=== PATIENT | female | born 1960 | race Caucasian/White ===

== ENCOUNTER → 2017-04-09 14:54 | Outpatient (CLI) | payer BC, SELFPAY ==
[2017-04-14 10:41] LABS: HPV Reflexed? NOT INDICATED
== END ==
PROVIDERS: Visit Provider Obstetrics & Gynecology
DX: R87.610 Atypical squamous cells of undetermined significance on cytologic smear of cervix (ASC-US) (principal)
CPT/HCPCS: 88175; G0145

== ENCOUNTER 2017-06-20 05:26 | Day surgery (SDC) | payer BC, SELFPAY ==
--- NOTE | 2017-06-20 05:38 | EKG12_ITS ---
Test Reason : PRE OP Blood Pressure : / mmHG Vent. Rate : 077 BPM Atrial Rate : 077 BPM P-R Int : 148 ms QRS Dur : 080 ms QT Int : 450 ms P-R-T Axes : 044 020 073 degrees QTc Int : 509 ms Normal sinus rhythm Low voltage QRS Prolonged QT Abnormal ECG No previous ECGs available Confirmed by CANDIS COFFMAN ([id number]), proposal editor ANNALISA LAWRENCE ([id number]) on 06/24/2017 4:09:08 PM Referred By: Nettie Lemus Confirmed By:CANDIS COFFMAN
[2017-06-20 05:48] VITALS: BP 145/91; PULSE 76; RESP 14; TEMP 36.5; O2SAT 95; BMI 43.4
[2017-06-20 06:29] LABS: Absolute Lymphocyte Count 2.89 X10^3/ul (0.83-4.51); Absolute Neutrophil Count 3.3 X10^3/uL (2.0-7.7); Basophil# 0.12 X10^3/uL; Basophil% 1.6 % (0-1); Eosinophil# 0.45 X10^3/uL; Eosinophils% 6.1 % (0-5); Hematocrit 42.4 % (37-47); Hemoglobin 14.5 g/dl (12.0-15.0); Lymphocyte # 2.89 X10^3/ul (4.0); Lymphocyte % 39.1 % (19-41); Mean Corp Hgb Conc 34.2 g/gl (32-36); Mean Corpuscular Hgb 30.7 pg (27.0-32.0); Mean Corpuscular Volume 89.6 fL (81-99); Mean Platelet Vol. 10.9 fl (6.2-12.0); Monocyte# 0.59 X10^3/uL; Neutrophil # 3.31 X10^3/uL (2.7-7.7); Neutrophil % 44.8 % (47-70); POSITIVE COUNT NO; POSITIVE DIFFERENTIAL NO; POSITIVE MORPHOLOGY NO; Platelet Count 257 K/mm3 (150-450); RBC Distribution Width CV 13.3 % (11.6-14.6); RBC Distribution Width SD 43.1 fl (35.1-43.9); Red Blood Count 4.73 M/mm3 (4.2-5.4); White Blood Count 7.4 K/mm3 (4.4-11.0)
--- NOTE | 2017-06-20 07:50 | OP.PCM_ITS ---
Problem List (1) Female stress incontinence Status: Chronic Report of Operation Date of Procedure: 06/20/17 Pre-Operative Diagnosis: GUERLINE Post-Operative Diagnosis: same Surgery/Procedure Performed:: Midurethral sling and cystoscopy Description of Surgical Findings:: The patient was taken to the operating room where general anesthesia was initiated. The patient was placed in dorsal lithotomy position and prepped and draped in sterile fashion. A surgical timeout occurred. Reyna catheter was placed in the patient's bladder. The vaginal epithelium overlying the mid- urethra was grasped with two Allis clamps, injected with 0.25% Marcaine with epinephrine and a 1.5 cm midline incision was made over the mid urethra using a 15 blade scalpel. Tunnels were dissected bilaterally to the pubic rami and the Diana Desera trocars were passed through the tunnels on the right side, through the space of Retzius and out the skin at at the pubic symphysis. This was repeated on the patient's left side. Cystoscopy was performed and there was no evidence of bladder or urethral injury. The sling was then drawn up through the space of Retzius and out the skin at the pubic symphysis. Tension was adjusted by placing a Wangensteen forceps between the sling and the urethra. Once adequate tension was adjusted, the plastic sheaths were removed. The redundant sling was trimmed at the skin edges and the skin was repaired with Indermil. The vaginal epithelium was repaired with a running 3-0 Vicryl suture. Anesthesia was discontinued. All needle, instrument, and sponge counts were correct x 2. The patient was taken to recovery room in stable condition. accounts payable lead: Graciela Wade Type of Anesthesia:: General - LMA
--- NOTE | 2017-06-20 07:53 | PCM.DC.GS ---
Discharge Diet: No Restrictions Discharge Activity: Return to Normal Activity May shower in (days): 1 May resume sexual activity in: 6 weeks Weight Bearing Status: Weight bearing as tolerated Call your doctor if your incision/area has: Continuous Slow Oozing, Sudden Increased Bleeding, Increased Pain/ Swelling, Increased Redness, Foul Smelling Discharge, Swelling at the incision site Call your doctor if you observe: Fever of 101 or Higher, Coldness, Increased Pain, Inability to urinate, Inability to have a bowel movement, Using more than one pad per hour, Shortness of breath, Uncontrolled pain Allergies/Adverse Reactions: Allergies No Known Allergies Allergy (Verified 06/13/17 11:24) Medications to take at Discharge Lisinopril/Hydrochlorothiazide [Zestoretic 20/12.5 Tablet] 1 tablet PO DAILY 06/13/17 Loratadine [Claritin] 10 mg PO PRN PRN 06/13/17 Primary Care Physician: Odessa Cordero MD [Primary Care Provider] - Please Follow Up With: Nettie Lemus MD When: 6 weeks Proposed Discharge Date: 06/20/17
[2017-06-20 07:54] VITALS: BP 133/80; BP 145/91; PULSE 82; RESP 16; TEMP 36.1; O2SAT 97
[2017-06-20 08:15] VITALS: BP 142/82; BP 145/91; PULSE 75; RESP 16; O2SAT 92
[2017-06-20 08:30] VITALS: BP 130/82; BP 145/91; PULSE 75; RESP 16; O2SAT 94
[2017-06-20 08:45] VITALS: BP 145/91; BP 146/80; PULSE 70; RESP 16; TEMP 36; O2SAT 97
[2017-06-20 10:09] VITALS: BP 145/91
== END 2017-06-20 10:15 | disposition home or self-care (01) ==
LOC: SDC 05:30 → AC 05:30
PROVIDERS: Family Provider Family Medicine; PCP Family Medicine; Visit Provider Obstetrics & Gynecology
PROC: (CPT 57260; principal; 2017-06-20 07:05)
DX: N39.3 Stress incontinence (female) (male) (principal); N81.6 Rectocele; N32.81 Overactive bladder; I10 Essential (primary) hypertension; Z87.891 Personal history of nicotine dependence; Z79.899 Other long term (current) drug therapy
CPT/HCPCS: 57288; 36415; 85025; 93005; J7120; C1771; J2405

== ENCOUNTER → 2017-08-19 10:01 | Outpatient (CLI) | payer BC, SELFPAY ==
[2017-08-19 12:50] LABS: Anion Gap 8 (5-15); BUN 12 mg/dL (7-18); Calcium,Total 8.6 mg/dL (8.5-10.1); Chloride 105 mmol/L (98-107); EST Glomerular Filtration Rate 60 mL/min (>60); Est Glom Filt Rate - Afr Amer 73 mL/min (>60); Glucose 118 mg/dL (74-106); Potassium 4.1 mmol/L (3.5-5.1); Sodium Level 142 mmol/L (136-145)
== END ==
PROVIDERS: Family Provider Family Medicine; PCP Family Medicine; Visit Provider Family Medicine
DX: I10 Essential (primary) hypertension (principal)
CPT/HCPCS: 36415; 80048

== ENCOUNTER → 2018-03-04 10:35 | Outpatient (CLI) | payer BC, SELFPAY ==
[2018-03-04 12:32] LABS: Anion Gap 9 (5-15); BUN 16 mg/dL (7-18); BUN/Creat Ratio 19.5 RATIO (10-20); Calcium,Total 8.6 mg/dL (8.5-10.1); Chloride 106 mmol/L (98-107); Creatinine, Serum 0.82 mg/dL (0.55-1.02); EST Glomerular Filtration Rate 76 mL/min (>60); Est Glom Filt Rate - Afr Amer 92 mL/min (>60); Glucose 110 mg/dL (74-106); Potassium 4.2 mmol/L (3.5-5.1); Sodium Level 143 mmol/L (136-145)
== END ==
PROVIDERS: Family Provider Family Medicine; PCP Family Medicine; Visit Provider Family Medicine
DX: I10 Essential (primary) hypertension (principal)
CPT/HCPCS: 36415; 80048

== ENCOUNTER → 2018-04-18 08:54 | Outpatient (CLI) | payer BC, SELFPAY ==
--- NOTE | 2018-04-18 08:56 | BI_ITS ---
MAMMOGRAPHY - BILATERAL SCREENING REASON FOR EXAM: Female, 58 years old. Routine annual screening examination. PERTINENT HISTORY: Mother with breast cancer. TECHNIQUE: Digital bilateral breast zabrina (3D mammographic acquisition) in the CC and MLO projections. 2-D mediolateral oblique (MLO) and craniocaudad (CC) views of both breasts were obtained. CAD: Full Field Digital Mammography with Computer Added Detection was performed. COMPARISON: Comparison is made with prior study dated October 09, 2016 and October 02, 2015. FINDINGS: Breast Composition: The breasts are heterogeneously dense, which may obscure small masses. There are no dominant masses or suspicious calcifications. There are stable small bilateral axillary lymph nodes. No other significant abnormalities are identified. There has been no significant change since the prior study. BI/SCREENING MAMM (CAD), BILAT IMPRESSION: Stable bilateral screening mammogram. Yearly follow-up mammogram recommended. (A) ASSESSMENT CATEGORY: BIRADS Category 2: Benign. A letter regarding these results will be sent to the patient by the facility within 30 days. Approximately 10% of breast cancers are not detected by mammography. A normal mammogram should not delay biopsy of a clinically suspicious abnormality. [id number] Electronically Signed: Mustapha Wong MD at 9:08 EST , Service support ,
== END ==
PROVIDERS: Family Provider Family Medicine; PCP Family Medicine; Referring Provider Family Medicine; Visit Provider Family Medicine
DX: Z12.31 Encounter for screening mammogram for malignant neoplasm of breast (principal)
CPT/HCPCS: 77063; 77067

== ENCOUNTER 2018-06-02 08:07 | Emergency (ER) | payer BC, SELFPAY ==
[2018-06-02 08:08] VITALS: BP 158/93; PULSE 71; RESP 20; TEMP 36.6; O2SAT 97; BMI 41.5
[2018-06-02 08:32] VITALS: BP 142/83; PULSE 64; RESP 16; O2SAT 95
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
[2018-06-02] MEDS: Ibuprofen 600 MG Tablet PO (09:32)
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
--- NOTE | 2018-06-02 11:01 | ED.RN ---
DISCHARGE INSTRUCTIONS GIVEN TO AND REVIEWED WITH PATIENT, PATIENT DENIES QUESTIONS OR CONCERNS AND VOICES UNDERSTANDING OF DISCHARGE INSTRUCTIONS. PT AMBULATES OUT OF ROOM WITHOUT DIFFICULTY.
== END 2018-06-02 11:01 | disposition home or self-care (01) ==
LOC: ED 08:42
PROVIDERS: Emergency Provider Emergency Medicine; Family Provider Family Medicine; PCP Family Medicine
DX: S80.01XA Contusion of right knee, initial encounter (principal); R07.89 Other chest pain; M79.642 Pain in left hand; Z87.891 Personal history of nicotine dependence; V43.52XA Car driver injured in collision with other type car in traffic accident, initial encounter; Y93.I9 Activity, other involving external motion; Y92.410 Unspecified street and highway as the place of occurrence of the external cause; Y99.8 Other external cause status
CPT/HCPCS: 71101; 73130; 73564; 99283

== ENCOUNTER → 2018-10-23 | Outpatient (CLI) | payer BC, SELFPAY ==
[2018-10-28 12:15] LABS: HPV APTIMA, High Risk Negative (Negative)
== END | disposition home or self-care (01) ==
PROVIDERS: Family Provider Family Medicine; PCP Family Medicine; Referring Provider Obstetrics & Gynecology; Visit Provider Obstetrics & Gynecology
DX: Z12.4 Encounter for screening for malignant neoplasm of cervix (principal)
CPT/HCPCS: 87624; 88175; G0145

== ENCOUNTER → 2019-03-16 09:57 | Outpatient (CLI) | payer BC, SELFPAY ==
[2019-03-16 12:33] LABS: Anion Gap 6 (5-15); BUN 13 mg/dL (7-18); Calcium,Total 8.9 mg/dL (8.5-10.1); Chloride 106 mmol/L (98-107); Cholesterol 203 mg/dL (200); Creatinine, Serum 0.93 mg/dL (0.55-1.02); EST Glomerular Filtration Rate 66 mL/min (>60); Est Glom Filt Rate - Afr Amer 80 mL/min (>60); Glucose 108 mg/dL (74-106); High Density Lipoprotein 52 mg/dL; Potassium 3.9 mmol/L (3.5-5.1); Sodium Level 140 mmol/L (136-145); Triglycerides 143 mg/dL; Very Low Density Lipoprotein 29 mg/dL (5-40)
== END ==
PROVIDERS: PCP Family Medicine; Visit Provider Family Medicine
DX: I10 Essential (primary) hypertension (principal)
CPT/HCPCS: 36415; 80048; 80061

== ENCOUNTER → 2019-04-21 07:58 | Outpatient (CLI) | payer BC, SELFPAY ==
--- NOTE | 2019-04-21 08:01 | BI_ITS ---
MAMMOGRAPHY - BILATERAL SCREENING REASON FOR EXAM: Female, 59 years old. Routine annual screening examination. PERTINENT HISTORY: Mother had breast cancer TECHNIQUE: Digital bilateral breast cuca (3D mammographic acquisition) in the CC and MLO projections. 2-D mediolateral oblique (MLO) and craniocaudad (CC) views of both breasts were obtained. CAD: Full Field Digital Mammography with Computer Added Detection was performed. COMPARISON: Previously obtained on 04/18/2018 FINDINGS: Breast Composition: Dense central breast fractures identified. There are no dominant masses or suspicious calcifications. No other significant abnormalities are identified. BI/SCREEN MAMM (CAD) W/CUCA BILAT IMPRESSION: Stable bilateral screening mammogram. Yearly follow-up mammogram recommended. (A) ASSESSMENT CATEGORY: BIRADS Category 1: Negative. A letter regarding these results will be sent to the patient by the facility within 30 days. Approximately 10% of breast cancers are not detected by mammography. A normal mammogram should not delay biopsy of a clinically suspicious abnormality. [id number] Electronically Signed: Leonel Randall, at 15:16 EST Tel , Service support ,
--- NOTE | 2019-04-21 08:18 | BD_ITS ---
STUDY: DUAL ENERGY X-RAY ABSORPTIOMETRY / DXA REASON FOR EXAM: Female, 59 years old. Age of osbaldo- 49. Pat is 252# and 65 and quot;. Past hx of taking an HRT. Past hx of smoking for 14 yrs. But quit @ 28. Has a diuretic in her BP meds. Exercises a little. TECHNIQUE: Bone Mineral Density (BMD) measurements of lumbar spine and bilateral hips were obtained. COMPARISON: None. FINDINGS: Lumbar Spine (L1-L4): g/cm2 (1.138) / T-score (-0.3) / Z-score (0.8) Findings are suggestive of normal bone density with a low fracture risk. Left Femur Total: g/cm2 (1.120) / T-score (0.9) / Z-score (1.8) Left Femoral Neck: g/cm2 (0.931) / T-score (-0.8) / Z-score (0.5) Right Femur Total: g/cm2 (1.125) / T-score (0.9) / Z-score (1.9) Right Femoral Neck: g/cm2 (1.025) / T-score (-0.1) / Z-score (1.1) BD/Dexa Bone Density Study IMPRESSION: The patient is considered normal as outlined below according to World Kvng Organization (WHO) criteria with a low fracture risk. Reference Information: The T-score is the number of standard deviations above or below the standard which is normal for young adults at their peak bone mineral density. The World Health Organization (WHO) interprets the T-scores as follows: Above -1 Normal bone density Between -1 and -2.5 Osteopenia Equal to / or below -2.5 Osteoporosis As a practical clinical guideline, osteopenia may be graded as follows: Mild -1 through -1.5 Moderate -1.6 through -2.0 Severe -2.1 through -2.4 The Z-score is the number of standard deviations above or below age-matched controls. A Z-score of less than -1.5 would be considered abnormal. References: 1. NIH Osteoporosis and Related Bone Diseases http://www.osteo.org 2. International Society for Clinical Densitometry http://www.iscd.org 3. National Osteoporosis Foundation http://www.nof.org Electronically Signed: Mustapha Wong, at 14:25 EST , Service support ,
== END ==
PROVIDERS: PCP Family Medicine; Referring Provider Family Medicine; Visit Provider Family Medicine
DX: Z00.00 Encounter for general adult medical examination without abnormal findings (principal); Z12.31 Encounter for screening mammogram for malignant neoplasm of breast; N95.9 Unspecified menopausal and perimenopausal disorder
CPT/HCPCS: 77063; 77067; 77080

== ENCOUNTER → 2020-01-18 11:32 | Outpatient (CLI) | payer BC, SELFPAY ==
[2020-01-18 15:57] LABS: Anion Gap 6 (5-15); BUN 12 mg/dL (7-18); BUN/Creat Ratio 11.8 RATIO (10-20); Calcium,Total 8.9 mg/dL (8.5-10.1); Chloride 108 mmol/L (98-107); Creatinine, Serum 1.02 mg/dL (0.55-1.02); EST Glomerular Filtration Rate 59 mL/min (>60); Est Glom Filt Rate - Afr Amer 71 mL/min (>60); Glucose 117 mg/dL (74-106); Potassium 3.8 mmol/L (3.5-5.1); Sodium Level 140 mmol/L (136-145)
== END ==
PROVIDERS: PCP Family Medicine; Referring Provider Family Medicine; Visit Provider Family Medicine
DX: I10 Essential (primary) hypertension (principal)
CPT/HCPCS: 36415; 80048

== ENCOUNTER → 2020-07-03 16:30 | Outpatient (CLI) | payer BC, SELFPAY ==
[2020-07-03 18:26] LABS: Anion Gap 5 (5-15); BUN 10 mg/dL (7-18); BUN/Creat Ratio 11.2 RATIO (10-20); Calcium,Total 9.3 mg/dL (8.5-10.1); Chloride 104 mmol/L (98-107); Cholesterol 215 mg/dL (200); Creatinine, Serum 0.89 mg/dL (0.55-1.02); EST Glomerular Filtration Rate 68 mL/min (>60); Est Glom Filt Rate - Afr Amer 83 mL/min (>60); Glucose 90 mg/dL (74-106); High Density Lipoprotein 54 mg/dL; Potassium 3.4 mmol/L (3.5-5.1); Sodium Level 137 mmol/L (136-145); Triglycerides 150 mg/dL; Very Low Density Lipoprotein 30 mg/dL (5-40)
== END ==
PROVIDERS: PCP Family Medicine; Referring Provider Family Medicine; Visit Provider Family Medicine
DX: I10 Essential (primary) hypertension (principal); E78.5 Hyperlipidemia, unspecified
CPT/HCPCS: 36415; 80048; 80061

== ENCOUNTER → 2020-07-17 11:53 | Outpatient (CLI) | payer BC, SELFPAY ==
--- NOTE | 2020-07-17 11:55 | BI_ITS ---
MAMMOGRAPHY - BILATERAL SCREENING REASON FOR EXAM: Female, 60 years old. Routine annual screening examination. PERTINENT HISTORY: Mother with breast cancer. TECHNIQUE: Digital bilateral breast zabrina (3D mammographic acquisition) in the CC and MLO projections. 2-D mediolateral oblique (MLO) and craniocaudad (CC) views of both breasts were obtained. CAD: Full Field Digital Mammography with Computer Added Detection was performed. COMPARISON: Comparison is made with prior examination of 04/21/2019 and 04/18/2018. FINDINGS: Breast Composition: The breasts are heterogeneously dense, which may obscure small masses. There are no dominant masses or suspicious calcifications. Stable small benign-appearing bilateral axillary lymph nodes. No other significant abnormalities are identified. There has been no significant change since the prior study. BI/SCREENING MAMM (CAD), BILAT IMPRESSION: Stable bilateral screening mammogram. Yearly follow-up mammogram recommended. (A) ASSESSMENT CATEGORY: BIRADS Category 1: Negative. A letter regarding these results will be sent to the patient by the facility within 30 days. Approximately 10% of breast cancers are not detected by mammography. A normal mammogram should not delay biopsy of a clinically suspicious abnormality. [id number] Electronically Signed: Mustapha Wong MD at 12:59 EDT , Service support ,
== END ==
PROVIDERS: PCP Family Medicine; Referring Provider Family Medicine; Visit Provider Family Medicine
DX: Z12.31 Encounter for screening mammogram for malignant neoplasm of breast (principal)
CPT/HCPCS: 77067

== ENCOUNTER → 2021-01-03 15:51 | Outpatient (CLI) | payer BC, SELFPAY ==
[2021-01-03 18:13] LABS: Anion Gap 6 (5-15); BUN 18 mg/dL (7-18); BUN/Creat Ratio 19.8 RATIO (10-20); Calcium,Total 9.1 mg/dL (8.5-10.1); Chloride 106 mmol/L (98-107); Creatinine, Serum 0.91 mg/dL (0.55-1.02); EST Glomerular Filtration Rate 67 mL/min (>60); Est Glom Filt Rate - Afr Amer 81 mL/min (>60); Glucose 78 mg/dL (74-106); Potassium 3.8 mmol/L (3.5-5.1); Sodium Level 140 mmol/L (136-145)
== END ==
PROVIDERS: PCP Family Medicine; Referring Provider Family Medicine; Visit Provider Family Medicine
DX: I10 Essential (primary) hypertension (principal)
CPT/HCPCS: 36415; 80048

== ENCOUNTER → 2021-08-03 | Outpatient (CLI) | payer BC, SELFPAY ==
--- NOTE | 2021-08-03 13:11 | BI_ITS ---
MAMMOGRAPHY - BILATERAL SCREENING REASON FOR EXAM: Female, 61 years old. Routine annual screening examination. PERTINENT HISTORY: Mother with breast cancer. TECHNIQUE: Digital bilateral breast cuca (3D mammographic acquisition) in the CC and MLO projections. 2-D mediolateral oblique (MLO) and craniocaudad (CC) views of both breasts were obtained. CAD: Full Field Digital Mammography with Computer Added Detection was performed. COMPARISON: Mammogram from 07/17/2020, 04/21/2019, 04/18/2018, 10/09/2016. FINDINGS: Breast Composition: The breasts are heterogeneously dense, which may obscure small masses. There are no dominant masses or suspicious calcifications. Stable small benign-appearing bilateral axillary lymph nodes. No other significant abnormalities are identified. There has been no significant change since the prior study. BI/SCRN MAMM (CAD)W/CUCA BILAT IMPRESSION: Stable bilateral screening mammogram. Yearly follow-up mammogram recommended. (A) ASSESSMENT CATEGORY: BIRADS Category 2: Benign. A letter regarding these results will be sent to the patient by the facility within 30 days. Approximately 10% of breast cancers are not detected by mammography. A normal mammogram should not delay biopsy of a clinically suspicious abnormality. [id number] Electronically Signed: Joseph Lozano, at 8:46 EDT ,
== END | disposition home or self-care (01) ==
LOC: OPBI 13:10
PROVIDERS: PCP Family Medicine; Referring Provider Family Medicine; Visit Provider Family Medicine
DX: Z12.31 Encounter for screening mammogram for malignant neoplasm of breast (principal); Z80.3 Family history of malignant neoplasm of breast
CPT/HCPCS: 77063; 77067

== ENCOUNTER → 2021-08-14 | Outpatient (CLI) | payer BC, SELFPAY ==
[2021-08-16 11:23] LABS: HPV APTIMA, High Risk Negative (Negative)
== END | disposition home or self-care (01) ==
LOC: LABSPEC 11:05
PROVIDERS: PCP Family Medicine; Visit Provider Obstetrics & Gynecology
DX: Z12.4 Encounter for screening for malignant neoplasm of cervix (principal)
CPT/HCPCS: 87624; 88175; G0145

== ENCOUNTER → 2022-09-06 | Outpatient (CLI) | payer BC, SELFPAY ==
[2022-09-06 18:37] LABS: AST(SGOT) 31 U/L (15-37); Alanine Aminotransfer ALT/SGPT 35 U/L (13-56); Anion Gap 5 (5-15); BUN 13 mg/dL (7-18); BUN/Creat Ratio 13.4 RATIO (10-20); Calcium,Total 8.9 mg/dL (8.5-10.1); Chloride 105 mmol/L (98-107); Cholesterol 227 mg/dL (200); Creatinine, Serum 0.97 mg/dL (0.55-1.02); EST Glomerular Filtration Rate 62 mL/min (>60); Est Glom Filt Rate - Afr Amer 75 mL/min (>60); Glucose 79 mg/dL (74-106); High Density Lipoprotein 51 mg/dL; Sodium Level 138 mmol/L (136-145); Triglycerides 138 mg/dL; Very Low Density Lipoprotein 28 mg/dL (5-40)
== END | disposition home or self-care (01) ==
LOC: MFPLAB 15:53
PROVIDERS: PCP Family Medicine; Visit Provider Family Medicine
DX: I10 Essential (primary) hypertension (principal); E78.5 Hyperlipidemia, unspecified
CPT/HCPCS: 36415; 80048; 80061; 84450; 84460

== ENCOUNTER → 2022-09-09 | Outpatient (CLI) | payer BC, SELFPAY ==
--- NOTE | 2022-09-09 10:39 | BI_ITS ---
MAMMOGRAPHY - BILATERAL SCREENING 3-D TOMOSYNTHESIS REASON FOR EXAM: Female, 62 years old. Routine screening PERTINENT HISTORY: Mother with breast cancer.. TECHNIQUE: 2-D mammograms and 3-D Tomosynthesis of the breast (s) were performed. CAD was performed. COMPARISON: 07/17/2020 FINDINGS: The breast composition is heterogeneously dense that can obscure small breast masses. Scattered benign calcifications are seen. No dense spiculated masses or suspicious microcalcifications are identified. No architectural distortion is identified. There is no skin thickening or retraction. There has been no significant change since the prior study. BI/SCRN MAMM (CAD)W/CUCA BILAT IMPRESSION: No mammographic signs of malignancy. Routine yearly mammograms recommended. ASSESSMENT CATEGORY: BIRADS Category 2: Benign. A letter regarding these results will be sent to the patient by the facility within 30 days. FOLLOW UP RECOMMENDATION: Yearly follow up mammogram recommended. (A) Approximately 10% of breast cancers are not detected by mammography. A normal mammogram should not delay biopsy of a clinically suspicious abnormality. Electronically Signed: Luc Maldonado MD at 11:59 EDT ,
== END | disposition home or self-care (01) ==
LOC: OPBI 10:37
PROVIDERS: PCP Family Medicine; Referring Provider Family Medicine; Visit Provider Family Medicine
DX: Z12.31 Encounter for screening mammogram for malignant neoplasm of breast (principal); Z80.3 Family history of malignant neoplasm of breast
CPT/HCPCS: 77063; 77067

== ENCOUNTER → 2023-09-29 | Outpatient (CLI) | payer BC, SELFPAY ==
[2023-09-29 18:08] LABS: AST(SGOT) 23 U/L (15-37); Alanine Aminotransfer ALT/SGPT 26 U/L (13-56); Anion Gap 3 (5-15); BUN 13 mg/dL (7-18); BUN/Creat Ratio 15.5 RATIO (10-20); Calcium,Total 8.7 mg/dL (8.5-10.1); Chloride 107 mmol/L (98-107); Cholesterol 206 mg/dL (200); Creatinine, Serum 0.84 mg/dL (0.55-1.02); EST Glomerular Filtration Rate 72 mL/min (>60); Est Glom Filt Rate - Afr Amer 88 mL/min (>60); Glucose 91 mg/dL (74-106); High Density Lipoprotein 46 mg/dL; Potassium 4.2 mmol/L (3.5-5.1); Sodium Level 138 mmol/L (136-145); Triglycerides 292 mg/dL; Very Low Density Lipoprotein 58 mg/dL (5-40)
== END | disposition home or self-care (01) ==
LOC: MFPLAB 15:25
PROVIDERS: PCP Family Medicine; Visit Provider Family Medicine
DX: I10 Essential (primary) hypertension (principal); E78.5 Hyperlipidemia, unspecified
CPT/HCPCS: 36415; 80048; 80061; 84450; 84460

== ENCOUNTER → 2023-10-16 | Outpatient (CLI) | payer BC, SELFPAY ==
--- NOTE | 2023-10-16 10:10 | BI_ITS ---
MAMMOGRAPHY - BILATERAL SCREENING REASON FOR EXAM: Female, 63 years old. Routine annual screening examination. PERTINENT HISTORY: Mother with breast cancer. TECHNIQUE: Digital bilateral breast cuca (3D mammographic acquisition) in the CC and MLO projections. 2-D mediolateral oblique (MLO) and craniocaudad (CC) views of both breasts were obtained. CAD: Full Field Digital Mammography with Computer Added Detection was performed. COMPARISON: Comparison is made with prior study August 30, 2022 and August 03, 2021. FINDINGS: Breast Composition: The breasts are heterogeneously dense, which may obscure small masses. There are no dominant masses or suspicious calcifications. No other significant abnormalities are identified. There has been no significant change since the prior study. BI/SCRN MAMM (CAD)W/CUCA BILAT IMPRESSION: Stable bilateral screening mammogram. Yearly follow-up mammogram recommended. (A) ASSESSMENT CATEGORY: BIRADS Category 1: Negative. A letter regarding these results will be sent to the patient by the facility within 30 days. Approximately 10% of breast cancers are not detected by mammography. A normal mammogram should not delay biopsy of a clinically suspicious abnormality. [id number] Electronically Signed: Mustapha Wong MD at 12:15 EDT ,
--- NOTE | 2023-10-16 10:10 | BD_ITS ---
STUDY: DUAL ENERGY X-RAY ABSORPTIOMETRY / DXA REASON FOR EXAM: Female, 63 years old. [id number] TECHNIQUE: Bone Mineral Density (BMD) measurements of lumbar spine and bilateral hips were obtained. COMPARISON: Comparison is made with prior study dated April 21, 2019. FINDINGS: Lumbar Spine (L1-L4): g/cm2 (0.927) / T-score (-1.1) / Z-score (0.6) Findings are suggestive of osteopenia with a low fracture risk. Left Femur Total: g/cm2 (1.024) / T-score (0.7) / Z-score (1.9) Left Femoral Neck: g/cm2 (0.776) / T-score (-0.7) / Z-score (0.8) Right Femur Total: g/cm2 (1.066) / T-score (1.0) / Z-score (2.2) Right Femoral Neck: g/cm2 (0.873) / T-score (0.2) / Z-score (1.7) The T-Scores on the most recent prior examination were: Lumbar Spine (L1-L4): There has been worsening of bone density since the previous examination. Left Femur Total: which represents a worsening of 2.5%. Right Femur Total: which represents an improvement of 1%. BD/Dexa Bone Density Study IMPRESSION: The patient is considered osteopenic as outlined below according to World Kvng Organization (WHO) criteria with a low fracture risk. There has been worsening of bone density since the previous examination. Reference Information: The T-score is the number of standard deviations above or below the standard which is normal for young adults at their peak bone mineral density. The World Health Organization (WHO) interprets the T-scores as follows: Above -1 Normal bone density Between -1 and -2.5 Osteopenia Equal to / or below -2.5 Osteoporosis As a practical clinical guideline, osteopenia may be graded as follows: Mild -1 through -1.5 Moderate -1.6 through -2.0 Severe -2.1 through -2.4 The Z-score is the number of standard deviations above or below age-matched controls. A Z-score of less than -1.5 would be considered abnormal. References: 1. NIH Osteoporosis and Related Bone Diseases www osteo.org 2. International Society for Clinical Densitometry www iscd.org 3. National Osteoporosis Foundation www nof.org Electronically Signed: Mustapha Wong MD at 8:51 EDT ,
== END | disposition home or self-care (01) ==
PROVIDERS: PCP Family Medicine; Referring Provider Family Medicine; Visit Provider Family Medicine
DX: Z12.31 Encounter for screening mammogram for malignant neoplasm of breast (principal); N95.9 Unspecified menopausal and perimenopausal disorder; Z80.3 Family history of malignant neoplasm of breast
CPT/HCPCS: 77063; 77067; 77080

== ENCOUNTER → 2024-10-14 | Outpatient (CLI) | payer MEDICARE, BC, SELFPAY ==
[2024-10-14 12:38] LABS: Hematocrit 44.6 % (37-47); Hemoglobin 15.1 g/dL (12.0-15.0); Immature Granulocytes Count 0.020 X10^3/uL (0.0-0.0); Mean Corp Hgb Conc 33.9 g/dL (32-36); Mean Corpuscular Volume 92.1 fL (81-99); Mean Platelet Vol. 11.3 fl (6.2-12.0); NRBC Flagged by Analyzer 0 % (0-5); Platelet Count 262 K/mm3 (150-450); RBC Distribution Width CV 12.9 % (11.6-14.6); RBC Distribution Width SD 43.5 fl (35.1-43.9); Red Blood Count 4.84 M/mm3 (4.2-5.4); White Blood Count 6.8 K/mm3 (4.4-11.0)
[2024-10-14 13:22] LABS: Creatinine, Urine (random) 199.00 mg/dL (28.00-217.00); Microalbumin,Random Urine 110.0 mg/L (<20 mg/L)
[2024-10-14 13:35] LABS: AST(SGOT) 26 U/L (<=31); Alanine Aminotransfer ALT/SGPT 23 U/L (<=34); Albumin, Serum 3.9 g/dL (3.4-4.8); Alkaline Phosphatase 69 U/L (35-104); Anion Gap 11 (5-15); BUN 10 mg/dL (4-19); BUN/Creat Ratio 11.1 RATIO (10-20); Calcium,Total 9.2 mg/dL (7.6-11.0); Carbon Dioxide 23.8 mmol/L (21.0-32.0); Chloride 105 mmol/L (98-108); Cholesterol 194 mg/dL (<=200); Globulin 2.8 g/dL (2.2-4.2); Glucose 116 mg/dL (70-99); Low Density Lipoprotein Calc. 122 mg/dL; Potassium 4.3 mmol/L (3.3-5.1); Triglycerides 123 mg/dL; Very Low Density Lipoprotein 25 mg/dL (5-40); cholesterol:hdl ratio screen 4.07
== END | disposition home or self-care (01) ==
LOC: MFPLAB 10:24
PROVIDERS: PCP Family Medicine; Referring Provider Family Medicine; Visit Provider Family Medicine
DX: I10 Essential (primary) hypertension (principal); E78.1 Pure hyperglyceridemia
CPT/HCPCS: 36415; 80053; 80061; 82043; 82570; 83036; 85025

== ENCOUNTER → 2024-10-21 | Outpatient (CLI) | payer MEDICARE, BC, SELFPAY ==
--- NOTE | 2024-10-21 12:20 | BI_ITS ---
EXAM: SCRN MAMM (CAD)W/CUCA BILAT DATE: 10/21/2024 CLINICAL HISTORY: F, Age 64 y/o , SCREENING TECHNIQUE: SCRN MAMM (CAD)W/CUCA BILAT COMPARISON: Prior exam(s) were compared FINDINGS: TISSUE DENSITY: The breasts are heterogeneously dense, which may obscure small masses. Bilateral Breast Mammographic Findings: No suspicious masses, calcifications or other abnormalities are identified. BI/SCRN MAMM (CAD)W/CUCA BILAT IMPRESSION: No mammographic evidence of malignancy OVERALL FINAL ASSESSMENT BI-RADS 1: NEGATIVE. RECOMMENDATION: Routine annual follow-up in 1 Year A letter with findings and recommendations will be mailed to the patient. Reading Location: [id number]
== END | disposition home or self-care (01) ==
PROVIDERS: PCP Family Medicine; Referring Provider Family Medicine; Visit Provider Family Medicine
DX: Z12.31 Encounter for screening mammogram for malignant neoplasm of breast (principal)
CPT/HCPCS: 77063; 77067

== ENCOUNTER → 2024-10-28 | Outpatient (CLI) | payer MEDICARE, BC, SELFPAY ==
--- NOTE | 2024-10-28 12:52 | US_ITS ---
PROCEDURE: BREAST LIMITED UNILATERAL 10/28/2024 REASON FOR EXAM: F, Age 64 y/o , MASS Abnormal screening mammogram. COMPARISON: Prior mammogram done earlier in the day in October 21, 2024.. TECHNIQUE: Procedure Code: USBRSTLIMIT Modality: US Procedure: BREAST LIMITED UNILATERAL. The upper medial aspect of the right breast as well as the right axilla were examined with ultrasound. FINDINGS: There is a 6 mm x 6 mm x 6 mm hypoechoic irregular nodule at the 1 o'clock position of the breast at 15 cm from the nipple. Biopsy recommended. There is a 2.1 cm x 1 cm x 0.6 cm lymph node in the right axilla. There is evidence of a fatty hilum. US/Breast Limited Unilateral IMPRESSION: 6 mm x 6 mm x 6 mm hypoechoic irregular nodule at the 1 o'clock position of the breast at 15 cm from the nipple. Biopsy recommended. Enlarged right axillary lymph node. A central fatty hilum is seen. BI-RADS 4: SUSPICIOUS RECOMMENDATION: Biopsy Recommended Reading Location: [place] [address]
--- NOTE | 2024-10-28 12:52 | BI_ITS ---
EXAM: DIAG MAMM W/CAD, UNILAT 10/28/2024 CLINICAL HISTORY: F, Age 64 y/o , MASS RIGHT TECHNIQUE: Procedure Code: [id number] Modality: MG Procedure: DIAG MAMM W/CAD, UNILAT. COMPARISON: Prior exam(s) dated October 21, 2024.. FINDINGS: TISSUE DENSITY: The breasts are heterogeneously dense, which may obscure small masses. Bilateral Breast Mammographic Findings: Once again, a spiculated mass is seen in the deep upper inner quadrant of the right breast. Targeted sonographic correlation recommended. BI/DIAG MAMM W/CAD, UNILAT IMPRESSION: Persistent spiculated mass in the deep upper inner quadrant of the right breast . Correlation with ultrasound recommended. OVERALL FINAL ASSESSMENT BI-RADS 0: INCOMPLETE - NEED ADDITIONAL IMAGING EVALUATION. RECOMMENDATION: Ultrasound Recommended A letter with findings and recommendations will be mailed to the patient. Reading Location: [id number]
== END | disposition home or self-care (01) ==
LOC: OPBI 12:50
PROVIDERS: PCP Family Medicine; Referring Provider Family Medicine; Visit Provider Family Medicine
DX: N63.10 Unspecified lump in the right breast, unspecified quadrant (principal); R92.8 Other abnormal and inconclusive findings on diagnostic imaging of breast
CPT/HCPCS: 76642; 77061; 77065; G0279

== ENCOUNTER → 2024-11-11 | Outpatient (CLI) | payer MEDICARE, BC, SELFPAY ==
--- NOTE | 2024-11-11 | BRBX_PTH ---
PATIENT: DURAN PATTERSON LOC: OPUS U#:[id number] AGE/SX: 64/F ROOM: RE11/11/[address]: Dr. Pebbles Stern MD : 1960 BED: DIS: 11/11/2024 SPEC #: [id number] RECD: 11/11/24 15:06 STATUS: RAMONA REQ #: [id number] CRISTELA: 11/11/24 00:[address]: Pebbles Stern DEPT: SURGICAL PATHOLOGY RECD BY: Bebeto Waller ENTERED: 11/12/24 08:02 SP TYPE: BREAST BX OTHR DR: Dr. Harry Woods MD Tissues: A - Right breast, NOS Procedures: Immunohistochemical Stains Surgery Specimen Level V IHC Stain ADDITIONAL Comments: Called office and spoke to Yvonne on 11/23/24 at 11:58am and notified that Dr. Vicente signed case out and immunostains and final diagnosis will be reported as addendum. HEADER OPERATION: Ultrasound guided breast biopsy PRE-OP DIAGNOSIS: Right breast mass, BIRADS 4 on ultrasound, suspicious for malignancy TISSUE SUBMITTED: A- Right breast mass, 1o'clock, 15cm MICROSCOPIC DIAGNOSIS A. Right breast, ultrasound guided core biopsy: * Invasive carcinoma at least 0.9 cm. * Grade 2 (tubule 3, nuclear 2, mitosis 1). * Immunostains are PENDING and the final diagnosis will follow in an addendum. MICROSCOPIC DESCRIPTION Slides are reviewed. GROSS DESCRIPTION A. Received in formalin labeled with the patient's name and date of . Designated as RT breast BX 5 passes are 4 lutz-pink to yellow fragmented tissue cores, 0.7 cm to 1.7 cm in length by 0.1 cm in diameter. Entirely submitted in 1 cassette. Cold ischemic time: <1-minuteFormalin fixation time: 38 hours, 30 minutes RI 11/11/2024 CPT:[id number] ADDENDUM ADDENDUM ADDENDUM ADDENDUM ADDENDUM ADDENDUM ADDENDUM ADDENDUM ADDENDUM ADDENDUM ADDENDUM ADDENDUM ADDENDUM ADDENDUM ADDENDUM ADDENDUM ADDENDUM ADDENDUM ADDENDUM ADDENDUM ADDENDUM ADDENDUM ADDENDUM ADDENDUM ADDENDUM ADDENDUM ADDENDUM ADDENDUM 11/23/2024 11:08 ADDENDUM 11/23/2024 11:08 ADDENDUM 11/23/2024 11:08 ADDENDUM 11/23/2024 11:08 ADDENDUM 11/23/2024 11:08 This addendum is to report the results of the IHC stains: Ecadherin: positive, consistent with invasive ductal carcinoma ER: positive (80%, strong intensity) UT: positive (20%, strong intensity) [id number]: positive (3+) Ki67: 20% CK5/6: confirms DCIS p40: confirms DCIS FINAL DIAGNOSIS: A. 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 * Grade 2 (tubule 3, nuclear 2, mitosis 1). * DCIS (ductal carcinoma in situ), intermediate nuclear grade with comedo necrosis. Note: Dr Stern's office was notified of this addendum report 11/23/24 (Bebeto Waller, phone call). All matched controls reacted appropriately. These tests were developed and their performance characteristics determined by [facility]. They may not have been cleared or approved by the U.[place]. Food and Drug Administration. The FDA has determined that such clearance or approval is not necessary. The above immunohistochemical markers and/or special stains have been reviewed by the Pathologist.
--- NOTE | 2024-11-11 13:23 | US_ITS ---
PROCEDURE: US BREAST BIOPSY 1ST LESION 11/11/2024 REASON FOR EXAM: F, Age 64 y/o , ABNORMAL ULTRASOUND OF RIGHT BREAST TECHNIQUE: Procedure Code: [id number] Modality: US Procedure: US BREAST BIOPSY 1ST LESION. Under direct sonographic guidance, the surgeon performed core biopsies of the 6 mm x 6 mm x 6 mm suspicious nodule at the 1 o'clock position of the breast at 15 cm from the nipple. COMPARISON: Prior exam(s) dating back to prior sonogram dated October 28, 2024.. FINDINGS: A tissue clip marker is seen in the axillary region of the right breast following the biopsy. ULTRASOUND: Ultrasound-guided core breast biopsy. US/US Breast Biopsy 1st Lesion IMPRESSION: OVERALL FINAL ASSESSMENT: BIRADS 11 WAITING PATHOLOGY RECOMMENDATION: Routine annual follow-up in 1 Year Reading Location: [place] [address]
--- NOTE | 2024-11-11 14:49 | OP.PCM_ITS ---
Operative Report (Standard) Operative Information Date of Procedure: 11/11/24 Pre-Operative Diagnosis: Right breast mass Post-Operative Diagnosis: Same Surgery/Procedure Performed: Ultrasound-guided right breast core biopsy sales professional: No Type of Anesthesia: Local Procedure Start Time: 14:15 Procedure Stop Time: 14:30 Select all DRAINS/GRAFTS/IMPLANTS that apply: Implanted device Implanted device details: Bard dual ultraclip-coil Special Medications: None Estimated Blood Loss: < 5 cc Specimen collected: Yes Description of specimen(s) removed: Right breast mass 1:00 15 cm from the nipple Description of surgery: Procedure: Right ultrasound-guided core biopsy Indications: 64 year-old female with hypoechoic nodule at 1:00 15 cm from the nipple in the right breast. Risk benefits were discussed the patient and she elected to proceed with ultrasound guided core biopsy with clip placement Description of procedure: Patient was brought into the ultrasound room in the right breast was marked. A timeout was completed verifying correct patient, procedure, site, specially, prior to beginning procedure. The right breast was prepped and draped in usual sterile fashion and using local anesthesia was obtained with 1% lidocaine with epi. The lesion was located with the ultrasound. Small incision was made with 11 blade to introduced the BARD MaxCore through the skin. Under ultrasound guidance multiple core samples were obtained using then 14-gauge BARD MaxCore and sent in formalin for pathology. The Bard dual ultra? coil clip was then deployed into the biopsy cavity under ultrasound guidance and a picture was taken. Upon completion procedure hemostasis was obtained and a Steri-Strip and OpSite were placed. Patient was then taken to the mammography suite for clip verification. The clip was verified. The patient tolerated the procedure well and was discharged from the breast imaging department good condition. Surgical Findings: See operative report Complications Complications: No
== END | disposition home or self-care (01) ==
LOC: OPUS 13:22
PROVIDERS: PCP Family Medicine; Referring Provider Surgery; Visit Provider Surgery
DX: N63.10 Unspecified lump in the right breast, unspecified quadrant (principal); R92.8 Other abnormal and inconclusive findings on diagnostic imaging of breast
CPT/HCPCS: 19083; 88307; 88341; 88342

== ENCOUNTER → 2024-11-26 | Outpatient (CLI) | payer MEDICARE, BC, SELFPAY ==
--- NOTE | 2024-11-26 14:02 | MRI_ITS ---
PROCEDURE: BREAST BILATERAL W/O AND W 11/26/2024 REASON FOR EXAM: HAS INVASIVE CARCINOMA RIGHT BREAST Recent diagnosis of invasive ductal carcinoma of the right breast status post ultrasound-guided biopsy of a mass at 1:00 15 cm from the nipple. TECHNIQUE: Procedure Code: [id number] Modality: MR Procedure: BREAST BILATERAL W/O AND W CONTRAST: 21 mL of Clariscan COMPARISON: Prior breast exams were compared FINDINGS: TISSUE DENSITY: The breasts are heterogeneously dense, which may obscure small masses. Background Parenchymal Enhancement: Mild RIGHT Breast: There is focal non-mass enhancement in the upper inner right breast posterior depth measuring 3.2 cm AP x 1.7 cm TV x 1.9 cm cc (series 272/image 60). This corresponds to the site of biopsy- proven malignancy. There is susceptibility artifact at the superior aspect of this non mass enhancement which corresponds to the biopsy clip (series 272/image 41). No evidence of chest wall involvement. LEFT Breast: In the upper-outer left breast posterior depth, there is focal area of non mass enhancement measuring 1.4 x 1.9 x 0.9 cm (AP x TV x CC) (series 272/image 82) Other Findings: No suspicious axillary or internal mammary lymph nodes. Nonenhancing STIR hyperintense right hepatic lesion measuring 2.8 cm likely represents a hepatic cyst. MRI/Breast Bilateral W/O and W IMPRESSION: Biopsy-proven malignancy in the upper inner right breast far posterior depth me asuring 3.2 cm AP x 1.7 cm TV x 1.9 cm cc marked with a biopsy clip which is located at the superior aspect of this region. Thi s corresponds to the biopsied sonographic mass at 1:00 15 cm from the nipple. Recommend continued surgical/oncological managemen t. No suspicious axillary lymphadenopathy. Indeterminate 1.9 cm focal non-mass enhancement in the upper-outer left breast posterior depth. Recommend MRI guided core needle biopsy. OVERALL FINAL ASSESSMENT BI-RADS 4: SUSPICIOUS RECOMMENDATION: Biopsy Recommended Reading Location: [id number]
== END | disposition home or self-care (01) ==
LOC: MRI 14:01
PROVIDERS: PCP Family Medicine; Referring Provider Surgery; Visit Provider Surgery
DX: N63.12 Unspecified lump in the right breast, upper inner quadrant (principal); C50.919 Malignant neoplasm of unspecified site of unspecified female breast
CPT/HCPCS: 77049; A9575; A4216; C8908

== ENCOUNTER → 2024-11-30 | Outpatient (CLI) | payer MEDICARE, BC, SELFPAY ==
--- NOTE | 2024-11-30 14:13 | ECHODONC_ITS ---
Reason For Study Reason For Study: CHEMOTHERAPY Procedure This was a 2D Doppler, Color Flow transthoracic echocardiogram. Myocardial strain analysis was performed in this exam to aid in the assessment of cardiac function. The study was technically difficult. Exam performed in department. Left Ventricle Normal left ventricle. The global longitudinal strain = -19.5 % (normal). The left ventricular ejection fraction is 60 %. No regional wall motion abnormalities noted. Right Ventricle Normal RV size. Normal systolic function. Atria Normal left atrium. Normal right atrium. Mitral Valve Normal mitral valve. Tricuspid Valve Normal tricuspid valve. Aortic Valve Trisinus/trileaflet aortic valve. Pulmonic Valve Normal pulmonic valve. Great Vessels Normal sized aortic root. The pulmonary artery is normal size. Inferior vena cava collapse with respiration. Pericardium/Pleural No pericardial effusion. MMode/2D Measurements & Calculations LVIDd: 3.6 cm IVSd: 1.0 cm LVOT diam: 2.0 cm LVIDs: 2.1 cm LVPWd: 0.83 cm LVOT area: 3.0 cm2 RVDd: 3.2 cm FS: 41.7 % asc Aorta Diam: 3.1 cm LAV(MOD-bp): 37.8 ml LVAd ap4: 19.2 cm2 LAV(MOD-bp) Indexed: 18.0 ml/m2 LVLd ap4: 7.4 cm LAV(MOD-sp2): 35.1 ml EDV(MOD-sp4): 42.1 ml LAV(MOD-sp4): 38.7 ml EDV(sp4-el): 42.5 ml LVAs ap4: 10.1 cm2 LVLs ap4: 6.1 cm ESV(MOD-sp4): 14.3 ml ESV(sp4-el): 14.2 ml EF(MOD-sp4): 66.1 % EF(sp4-el): 66.5 % LVAd ap2: 16.6 cm2 SV(MOD-sp4): 27.8 ml SV(MOD-sp2): 19.9 ml LVLd ap2: 7.3 cm SI(MOD-sp4): 13.2 ml/m2 SI(MOD-sp2): 9.5 ml/m2 EDV(MOD-sp2): 32.8 ml EDV(sp2-el): 31.7 ml LVAs ap2: 9.6 cm2 LVLs ap2: 6.3 cm ESV(MOD-sp2): 12.8 ml ESV(sp2-el): 12.5 ml EF(MOD-sp2): 60.9 % SV(sp4-el): 28.3 ml Ao sinus diam: 3.[address] Junction: 2.7 cm LA dimension(2D): 3.0 cm LA A4 area: 16.5 cm2 RA A4 area: 13.0 cm2 TAPSE: 1.8 cm Time Measurements MV dec time: 0.26 sec Doppler Measurements & Calculations MV E max aries: 57.2 cm/sec Lat Peak E' Aries: 9.8 cm/sec Med Peak E' Aries: 10.3 cm/sec MV A max aries: 83.0 cm/sec E/E' lat: 5.9 E/E' med: 5.6 MV E/A: 0.69 MV dec slope: 219.6 cm/sec2 Ao V2 max: 120.8 cm/sec LV V1 max: 102.5 cm/sec Ao max P.8 mmHg LV V1 max P.2 mmHg Ao V2 mean: 85.6 cm/sec LV V1 mean P.7 mmHg Ao mean P.3 mmHg LV V1 mean: 80.3 cm/sec Ao V2 VTI: 29.6 cm LV V1 VTI: 23.4 cm AV (velocity ratio): 0.79 ARIEL(I,D): 2.4 cm2 ARIEL(V,D): 2.5 cm2 SV(LVOT): 69.9 ml PA V2 max: 76.4 cm/sec ECHO/ONC Echo Complete Interpretation Summary Normal left ventricle. The global longitudinal strain = -19.5 % (normal). The left ventricular ejection fraction is 60 %. Structurally normal valves. Ordering Physician: Kleber Lal Referring Physician: Harry Woods MD Performed By: Denise Woodall RDCS
[2024-11-30 14:24] LABS: Hematocrit 46.6 % (37-47); Hemoglobin 15.9 g/dL (12.0-15.0); Immature Granulocytes Count 0.020 X10^3/uL (0.0-0.0); Mean Corp Hgb Conc 34.1 g/dL (32-36); Mean Corpuscular Volume 90.1 fL (81-99); Mean Platelet Vol. 10.5 fl (6.2-12.0); NRBC Flagged by Analyzer 0 % (0-5); Platelet Count 276 K/mm3 (150-450); RBC Distribution Width CV 12.3 % (11.6-14.6); RBC Distribution Width SD 40.9 fl (35.1-43.9); Red Blood Count 5.17 M/mm3 (4.2-5.4); White Blood Count 7.3 K/mm3 (4.4-11.0)
[2024-11-30 15:26] LABS: AST(SGOT) 29 U/L (<=31); Alanine Aminotransfer ALT/SGPT 24 U/L (<=34); Albumin, Serum 4.3 g/dL (3.4-4.8); Alkaline Phosphatase 83 U/L (35-104); Anion Gap 12 (5-15); BUN 13 mg/dL (4-19); BUN/Creat Ratio 14.3 RATIO (10-20); Calcium,Total 9.3 mg/dL (7.6-11.0); Carbon Dioxide 26.3 mmol/L (21.0-32.0); Chloride 103 mmol/L (98-108); Globulin 2.9 g/dL (2.2-4.2); Glucose 91 mg/dL (70-99); Potassium 3.9 mmol/L (3.3-5.1)
[2024-12-02 07:07] LABS: CA 15-3 10.6 U/mL (0.0-25.0); CA 27.29 19.6 U/mL (0.0-38.6); Carcinoembryonic Antigen 1.0 ng/mL (0.0-4.7)
== END | disposition home or self-care (01) ==
LOC: CVS 13:56
PROVIDERS: PCP Family Medicine; Referring Provider Internal Medicine Medical Oncology; Visit Provider Internal Medicine Medical Oncology
DX: Z01.818 Encounter for other preprocedural examination (principal); C50.911 Malignant neoplasm of unspecified site of right female breast; Z17.31 Human epidermal growth factor receptor 2 positive status
CPT/HCPCS: 36415; 80053; 82378; 85025; 86300; 86304; 93306; 93356

== ENCOUNTER → 2024-12-06 | Outpatient (CLI) | payer MEDICARE, BC, SELFPAY | END | disposition home or self-care (01) | LOC: OPUS 10:12 | PROVIDERS: PCP Family Medicine; Referring Provider Surgery; Visit Provider Surgery | DX: N63.21 Unspecified lump in the left breast, upper outer quadrant (principal) | CPT/HCPCS: 76642 ==

== ENCOUNTER 2025-01-14 10:19 | Day surgery (SDC) | payer MEDICARE, BC, SELFPAY ==
--- NOTE | 2024-12-02 15:01 | PAT.ANE_ITS ---
Pre-Assessment Diagnosis/Proposed Procedure Planned Operative Procedure(s): (L) Insertion, Vascular Port Left poss Right Anesthesia History Anesthesia History - online health and fitness coach: Anesthesia History - online health and fitness coach Hx Hospitalization No 12/02/24 14:40 Any Problems With Anesthesia No 12/02/24 14:40 Cholinesterase deficiency No 12/02/24 14:40 You/Your Family Experience No 12/02/24 14:40 fever (hyperthermia) with Relationship Recent Exposure to Contagious No 06/20/17 05:48 Disease Does patient have nerve No 12/02/24 14:40 stimulator Patient instructed to have device shut off --Does patient have Pacemaker or ICD? When Was Last Pacemaker Check QUESTION #4 FULL TEXT: You/Your Family Experience fever (hyperthermia) with Anesthesia Last Oral Intake Last Oral intake: Last Oral Intake NPO since Meds taken in AM with sips of water? Meds patient instructed to take am of surgery PONV PONV - online health and fitness coach: PONV - online health and fitness coach Female Yes 12/02/24 14:40 HX of Motion Sickness No 12/02/24 14:40 HX of N/V After Surgery No 12/02/24 14:40 Non-Smoker Yes 12/02/24 14:40 Duration of Surgery greater No 12/02/24 14:40 than 60 minutes Number of Risk Factors 2 12/02/24 14:40 PONV Score Moderate Risk 12/02/24 14:40 Height & Weight Height & Weight: Anesthesia: Height & Weight Height 5 ft 5 in 11/03/24 14:42 Respiratory Assessment Respiratory Assessment - online health and fitness coach: Respiratory Tract Infection Hx - online health and fitness coach Hx Respiratory Tract Infection No 12/02/24 14:40 STOP Sleep Apnea STOP Sleep Apnea - online health and fitness coach: STOP Sleep Apnea - online health and fitness coach Hx Hypertension Yes 12/02/24 14:40 Hx Sleep Apnea No 12/02/24 14:40 CPAP No 06/20/17 07:54 BIPAP Do you snore loudly (louder No 12/02/24 14:40 than talking or can be heard Do you often feel tired/ No 12/02/24 14:40 fatigued/ sleepy during daytime? Has anyone observed you stop No 12/02/24 14:40 breathing during sleep? STOP Results Negative 12/02/24 14:40 QUESTION #5 FULL TEXT : Do you snore loudly (louder than talking or can be heard through closed doors)? Tobacco Use History Tobacco Use History - online health and fitness coach: Tobacco Use History - online health and fitness coach Tobacco Use Smoking Status Former smoker 12/02/24 14:40 Hx Tobacco Use No 12/02/24 14:40 Years Smoking Packs Smoked per Day Smoking Cessation Date was No - quit smoking greater 12/02/24 14:40 within the last 15 years than 15 years ago Hx Smoking Cessation Date 02/24/87 12/02/24 14:40 Hx Smoking Cessation Counseling Hematologic Medial History Hematologic Hx - online health and fitness coach: Hematologic Medical Hx - hospital corpsman Hx of Blood Transfusion No 12/02/24 14:40 Hx of Transfusion in last 3 No 12/02/24 14:40 Months Date of Last Transfusion (if within last 3 months) Ever experience any problems No 12/02/24 14:40 with transfusion(s)? Specify any problems Hx of Preganancy in last 3 N/A 12/02/24 14:40 Months Nurse Filling Out Transfusion NBUCHER 12/02/24 14:40 & Questions: Date: 12/02/24 12/02/24 14:40 Time: 14:41 12/02/24 14:40 Patient unable to answer at this time (ie. confused, unrespo /Reproduction History /Reproductive History - online health and fitness coach: /Reproductive Hx- online health and fitness coach Hx Now No 12/02/24 14:40 Gestational Age (in weeks): EDC: Hx Hx Para Hx Section SAB No 12/02/24 14:40 PFSH Medical History Post-menopausal Cancer Former smoker Non-smoker History of echocardiogram Hypertension HER2-positive carcinoma of breast Hyperlipidemia Essential (primary) hypertension Hx of colonic polyp Home Medications ?Medication ?Instructions ?Recorded ?Last Taken ?Type Lisinopril/Hydrochlorothiazide 1 tab PO DAILY 06/13/17 Unknown History [Zestoretic 20/12.5 Tablet] loratadine 10 mg tablet (Allergy 10 mg PO PRN PRN Víctor rgies 06/13/17 Unknown History Relief (loratadine)) Allergy/AdvReac Type Severity Reaction Status Date / Time procaine (From Novocain) Allergy Hives Verified 12/02/24 14:40 Family History Mother Breast cancer Surgical History (Updated 12/02/24 @ 14:47 by Hyacinth Sawant) History of bladder surgery (06/20/17) H/O breast biopsy Hx of colonoscopy Social History (Updated 11/29/24 @ 13:57 by Love Persaud LPN) household members: spouse current occupational status: retired Smoking Status: Former smoker alcohol intake: current substance use type: does not use Audit: Pertinent Findings Pertinent Findings EKG Perinent findings: 06/20/2017. Normal sinus rhythm 77 bpm low voltage QRS. Prolonged QT. Echo (EF%) pertinent findings: 11/30/2024. Normal left ventricle. EF 60%. Structurally normal valves. Recommendation Anesthesia Recommendation Anesthesia recommendation: OPTIMIZED for anesthesia
[2025-01-14] VITALS (9 sets, daily range): BP systolic 108–141; BP diastolic 61–81; PULSE 60–75; RESP 16; TEMP 36.1–36.6; O2SAT 92–98; BMI 39.1
--- NOTE | 2025-01-14 10:51 | HP.PCM.SX_ITS ---
HPI - General General Date of Service: 01/14/25 HPI Narrative DURAN PATTERSON, is a 64 F who presents for port placement. Due to right breast cancer ER/IL positive HER2 positive [facility] Medical History Abnormal mammogram of left breast Post-menopausal Cancer Former smoker Non-smoker History of echocardiogram Hypertension HER2-positive carcinoma of breast Hyperlipidemia Essential (primary) hypertension Hx of colonic polyp Home Medications ?Medication ?Instructions ?Recorded ?Last Taken ?Type loratadine 10 mg tablet (Allergy 10 mg PO PRN PRN Víctor rgies 06/13/17 Unknown History Relief (loratadine)) lisinopril 20 1 tab PO .qd 01/07/25 Unknow n History mg-hydrochlorothiazide 12.5 mg tablet Allergy/AdvReac Type Severity Reaction Status Date / Time procaine (From Novocain) Allergy Hives Verified 01/14/25 10:41 Family History Mother Breast cancer Surgical History History of bladder surgery (06/20/17) H/O breast biopsy Hx of colonoscopy Social History household members: spouse current occupational status: retired Smoking Status: Former smoker alcohol intake: current substance use type: does not use Physical Exam Const oriented x3 and no apparent distress Resp normal respiratory effort Cardio regular rate Assessment & Plan Assessment/Plan (1) Encounter for adjustment or management of vascular access device: (2) Invasive ductal carcinoma of breast, female: QUALIFIERS: Laterality: right Qualified Code(s): C50.911 - Malignant neoplasm of unspecified site of right female breast PLAN: Plan I have discussed above with the patient- Port-a-Cath placement. Left IJ possible right Patient has been counseled as to the risks/benefits of the procedure. I have explained the risks of the surgery, including but not limited to: infection, bleeding, injury to any blood vessels/nerves, injury to lungs (such as pneumothorax or hemothorax and need for chest tube), not having any access, nonfunctioning of port due to thrombosis, infection of port, etc. the patient understands and agrees to proceed. I have answered all the patient's questions to the patient?s satisfaction and the patient has no further questions. Pebbles Stern M.D. Pager: [phone] [facility] [address] [place] [address] [address] [place] [address] Office: [phone]
[2025-01-14] MEDS: Lactated Ringers 1,000 ML 15 ML IV (10:52)
--- NOTE | 2025-01-14 11:01 | PCM.PRE.AN2 ---
ASA Classification* ASA Classification ASA Classification: 2 Assessment & Plan Anesthesia* Anesthesia Assessment Anesthesia Assessment: Discussed sedation and/or anesthesia options, risks, benefits, and alternatives with patient/parents/legal guardian/POA. Questions invited. The patient/parents/legal guardian/POA seems to understand and agrees to proceed with anesthesia plan. Reviewed the physical assessment, medical history, allergy history and patient home medications list prior to surgery/procedure/anesthetic and documented any changes. Performed airway and anesthesia risk assessments. Anesthesia Type Anesthesia Type: MAC Anesthesia Focused Assessment* Temperature: 97.7 F Pulse Rate: 68 Blood Pressure: 140/81 Respiratory Rate: 16 Pulse Ox: 98 Airway Assessment Mouth opens: >3 cm Mallampati Score: II Labs Anesthesia Preop lab: CBC WBC, (4.4-11.0) 7.7 K/mm3 01/06/25, 14:10 RBC, (4.2-5.4) 5.00 M/mm3 01/06/25, 14:10 Hgb, (12.0-15.0) 15.1 g/dL H 01/06/25, 14:10 Hct, (37-47) 45.5 % 01/06/25, 14:10 Plt Count, (150-450) 300 K/mm3 01/06/25, 14:10 CHEMISTRY Potassium, (3.3-5.1) 4.1 mmol/L 01/06/25, 14:10 Sodium, (133-145) 140 mmol/L 01/06/25, 14:10 BUN, (4-19) 12 mg/dL 01/06/25, 14:10 Creatinine, (0.70-1.20) 0.88 mg/dL 01/06/25, 14:10 Glucose, (70-99) 107 mg/dL H 01/06/25, 14:10 TSH, (0.358-3.74) 2.18 uIU/mL 12/04/11, 14:04 COAG PT, (11.9-14.4) 12.2 SECONDS 10/13/12, 13:07 Pre-Assessment Diagnosis/Proposed Procedure Planned Operative Procedure(s): (L) Insertion, Vascular Port Left poss Right Anesthesia History Anesthesia History - international coordinator: Anesthesia History - international coordinator Hx Hospitalization No 01/07/25 10:03 Any Problems With Anesthesia No 01/07/25 10:03 Cholinesterase deficiency No 01/07/25 10:03 You/Your Family Experience No 01/07/25 10:03 fever (hyperthermia) with Relationship Recent Exposure to Contagious No 01/14/25 10:43 Disease Does patient have nerve No 01/07/25 10:03 stimulator Patient instructed to have device shut off --Does patient have Pacemaker No 01/14/25 10:43 or ICD? When Was Last Pacemaker Check QUESTION #4 FULL TEXT: You/Your Family Experience fever (hyperthermia) with Anesthesia Last Oral Intake Last Oral intake: Last Oral Intake NPO since 00:00 01/14/25 10:43 Meds taken in AM with sips of No 01/14/25 10:43 water? Meds patient instructed to take am of surgery PONV PONV - international coordinator: PONV - international coordinator Female Yes 01/07/25 10:03 HX of Motion Sickness No 01/07/25 10:03 HX of N/V After Surgery No 01/07/25 10:03 Non-Smoker Yes 01/07/25 10:03 Duration of Surgery greater No 01/07/25 10:03 than 60 minutes Number of Risk Factors 2 01/07/25 10:03 PONV Score Moderate Risk 01/07/25 10:03 Height & Weight Height & Weight: Anesthesia: Height & Weight Height 5 ft 5 in 01/14/25 10:43 Weight: 106.7 kg 01/14/25 10:43 Body Mass Index (BMI) 39.1 01/14/25 10:43 Respiratory Assessment Respiratory Assessment - international coordinator: Respiratory Tract Infection Hx - international coordinator Hx Respiratory Tract Infection No 01/07/25 10:03 STOP Sleep Apnea STOP Sleep Apnea - international coordinator: STOP Sleep Apnea - international coordinator Hx Hypertension Yes: controlled with med 01/07/25 10:03 Hx Sleep Apnea No 01/07/25 10:03 CPAP No 01/07/25 10:03 BIPAP Do you snore loudly (louder No 01/07/25 10:03 than talking or can be heard Do you often feel tired/ No 01/07/25 10:03 fatigued/ sleepy during daytime? Has anyone observed you stop No 01/07/25 10:03 breathing during sleep? STOP Results Negative 01/07/25 10:03 QUESTION #5 FULL TEXT : Do you snore loudly (louder than talking or can be heard through closed doors)? Tobacco Use History Tobacco Use History - international coordinator: Tobacco Use History - international coordinator Tobacco Use Smoking Status Former smoker 01/07/25 10:03 Hx Tobacco Use No 01/07/25 10:03 Years Smoking Packs Smoked per Day Smoking Cessation Date was No - quit smoking greater 01/07/25 10:03 within the last 15 years than 15 years ago Hx Smoking Cessation Date 02/24/87 01/07/25 10:03 Hx Smoking Cessation Counseling Hematologic Medial History Hematologic Hx - international coordinator: Hematologic Medical Hx - toxicology supervisor Hx of Blood Transfusion No 01/07/25 10:03 Hx of Transfusion in last 3 No 01/07/25 10:03 Months Date of Last Transfusion (if within last 3 months) Ever experience any problems No 01/07/25 10:03 with transfusion(s)? Specify any problems Hx of Preganancy in last 3 No 01/07/25 10:03 Months Nurse Filling Out Transfusion JZOLLINGE 01/07/25 10:03 & Questions: Date: 01/07/25 01/07/25 10:03 Time: 10:03 01/07/25 10:03 Patient unable to answer at this time (ie. confused, unrespo /Reproduction History /Reproductive History - international coordinator: /Reproductive Hx- international coordinator Hx Now No 01/07/25 10:03 Gestational Age (in weeks): EDC: Hx Hx Para Hx Section SAB No 01/07/25 10:03 Does the father of the baby or his family experience fever w Father of the baby Malignant Hypertension history comment Active Medications Active Medications: Current Medications Generic Name Dose Route Start Last Admin Trade Name Freq PRN Reason Stop Dose Admin Lactated Ringer's 1,000 mls @ 15 mls/hr 01/14/25 10:45 01/14/25 10:52 IV 15 mls/hr .Q48H NURIA Administration PFSH Medical History Abnormal mammogram of left breast Post-menopausal Cancer Former smoker Non-smoker History of echocardiogram Hypertension HER2-positive carcinoma of breast Hyperlipidemia Essential (primary) hypertension Hx of colonic polyp Home Medications ?Medication ?Instructions ?Recorded ?Last Taken ?Type loratadine 10 mg tablet (Allergy 10 mg PO PRN PRN Allergies 06/13/17 Unknown History Relief (loratadine)) lisinopril 20 1 tab PO .qd 01/07/25 Unknown History mg-hydrochlorothiazide 12.5 mg tablet Allergy/AdvReac Type Severity Reaction Status Date / Time procaine (From Novocain) Allergy Hives Verified 01/14/25 10:41 Family History Mother Breast cancer Surgical History History of bladder surgery (06/20/17) H/O breast biopsy Hx of colonoscopy Social History household members: spouse current occupational status: retired Smoking Status: Former smoker alcohol intake: current substance use type: does not use Review of Systems (Anesthesia) ROS Narrative System reviewed and no additional complaints, except as documented.
[2025-01-14] MEDS: Lidocaine 1% (5 ml sdv) 5 ML Vial IV (11:15)
[2025-01-14] MEDS: Midazolam 2 MG/2 ML Syringe IV (11:15)
[2025-01-14] MEDS: Lactated Ringers 500 ML IV (11:15)
[2025-01-14] MEDS: Cefazolin 1 GM/5 ML Vial 2 GM IV (11:15)
[2025-01-14] MEDS: dexMEDEtomidine 200 MCG/2 ML ML 28 MCG IV (11:43)
[2025-01-14] MEDS: Lidocaine 1% /Epi 1:100 (20ml) 20 ML Vial (12:06)
--- NOTE | 2025-01-14 12:15 | PCM.POST.ANE ---
Anesthesia: Postop Eval I Current Vital Signs Temperature: 98 F Pulse Rate: 75 Blood Pressure: 141/65 Respiratory Rate: 16 Pulse Ox: 92 Oxygen Delivery Method: Room Air Assessment Airway patent: Yes Spontaneous unlabored respirations: Yes Mental status: Awake and Calm nausea: No Vomiting: No Anesthesia Complication: No Fluid Hydration Crystalloid volume administer (ml): 500 Total IV fluid infused: 500 Progress Note Anesthesia document: Postop Eval 1 completed: Yes
--- NOTE | 2025-01-14 12:29 | PCM.OPRPT ---
Operative Report (Standard) Operative Information Date of Procedure: 01/14/25 Pre-Operative Diagnosis: Z45.2, right breast cancer Post-Operative Diagnosis: Same Surgery/Procedure Performed: Placement of right IJ Port-A-Cath, attempted placement of left IJ Port-A-Cath Use of ultrasound Use of fluoroscopy infection control nurse: No Type of Anesthesia: Local MAC RN Documented Start/Stop Times: Operation Date: 01/14/25 12:00 Case Time Into Pre-Op 01/14/25 10:42 Out of Pre-Op 01/14/25 11:11 Anesthesia Start 01/14/25 11:14 Into Room 01/14/25 11:14 Procedure Start 01/14/25 11:30 Procedure End 01/14/25 12:11 Anesthesia End 01/14/25 12:18 Out of Room 01/14/25 12:18 Into Recovery 01/14/25 12:20 Into Phase II Recovery 01/14/25 12:41 Out of Recovery 01/14/25 12:41 Procedure Start Time: 11:30 Procedure Stop Time: 12:11 Select all DRAINS/GRAFTS/IMPLANTS that apply: Implanted device Implanted device details: [employer] PowerPort isp M.R.I. 6Fr Lot [id number] Special Medications: Ancef 2 g IV x 1 Estimated Blood Loss: 10 cc Specimen collected: No Description of surgery: After informed consent was given, the patient was brought to the operating room and placed in the supine position. Appropriate time out protocol was followed. Patient was then given IV conscious sedation for anesthesia. The patient's bilateral upper chest and neck were then prepped with a surgical skin preparation and sterile surgical drapes were placed. After proper landmarks were ascertained, the skin at the upper bilateral chest area was then infiltrated with 1:1 mixture of 1% lidocaine with epinephrine and 0.5% marcaine. A needle trocar was then inserted into the left internal jugular vein with ultrasound guidance-multiple vessels were viewed with u/s and the left IJ was chosen--however had aspiration of clotted blood. Did switch to the right side. The needle trocar was inserted into the right internal jugular vein with ultrasound guidance and there was good aspiration of venous blood. A wire was then threaded into the needle trocar and this was visualized under fluoroscopy to ensure that the wire was in the superior vena cava. Once this was done, then the needle trocar was removed. A small skin basilia was made with an 11 blade knife at the wire entrance site. The dilator with the introducer sheath attached was then placed over the wire into the right internal jugular vein via the Seldinger technique and this was visualized under fluoroscopy. The dilator and sheath were in proper position as visualized by fluoroscopy. A subcutaneous pocket was then created caudad to the catheter insertion site. A transverse skin incision was made after the skin and subcutaneous tissues were infiltrated with local anesthetic. Blunt dissection was then used to create a space large enough for placement of the subcutaneous port. The catheter was then tunneled into the subcutaneous pocket. The wire and dilator were then removed. The catheter was then threaded into the introducer sheath and was positioned with its tip at the junction of the superior vena cava and the right atrium as visualized under fluoroscopy. The excess catheter was transected. The catheter was then attached to the subcutaneous port using manufacturers guidelines. The catheter was flushed with a heparin saline mixture prior to placement. Hemostasis was carefully controlled with electrocautery. The port was sutured to the subcutaneous fascia using 2-0 Vicryl suture at two sites. The port was then placed in the subcutaneous pocket. The incision were reapproximated with interrupted subdermal 3-0 vicryl sutures. The skin was reapproximated with 3-0 nylon suture in a interrupted fashion. Steristrips were used for reinforcement of the skin closure at IJ insertion site and a sterile opsite dressings were applied. The patient tolerated the procedure well. Surgical Findings: see op note Complications Complications: No
--- NOTE | 2025-01-14 12:30 | RAD_ITS ---
PROCEDURE: CHEST 1 VIEW (PORTABLE) 01/14/2025 REASON FOR EXAM: PORT TECHNIQUE: Single AP portable upright chest. COMPARISON: Chest x-ray of 06/02/2018 RAD/Chest 1 View (Portable) IMPRESSION: Interval placement of a right-sided central venous catheter with port, with tip projecting over the proximal to mid SVC. No pneumothorax is seen. No pleural effusion is evident. Lungs appear clear of acute disease, and unchanged. The cardiomediastinal silhouette is stable, without evidence of cardiomegaly. Reading Location: [place] [id number]
--- NOTE | 2025-01-14 12:31 | DCINST_ITS ---
Discharge Instructions Procedure Port-A-Cath Diet Discharge Diet: Light diet - advance as tolerated Activity May shower in (days): 5 (Keep port site clean and dry x5 days. Neck incision okay to get wet after 1 day. Okay to lower shower and upper sponge bath. OR okay to taper off port site with a Ziploc bag to shower) Lifting Restrictions: No lifting > 15 pounds for 3 days with the right arm Dressing / Incision Call your doctor if your incision/area has: Continuous Slow Oozing, Sudden Increased Bleeding, Increased Pain/ Swelling, Increased Redness, Foul Smelling Discharge and Swelling at the incision site Call your doctor if you observe: Fever of 101 or Higher Change Dressing in: 2 days (2-3 days- port site; ok to remove left and right neck opsite in 1 day) Follow Up Care Please Follow Up With: Pebbles Stern MD When: In 10 days for permanent suture removal?call office for appointment Test Results: Test results from this visit will be discussed in further detail at your follow- up appointment, if applicable. Discharge Plan Admission Attending Provider: Pebbles Stern Primary Care Provider: Harry Woods Instructions Print Language: [place]errat[place] Discharge Orders/Prescriptions Prescriptions: New tramadol 50 mg tablet 50 mg PO Q6H PRN (Reason: pain) 2 Days Qty: 5 0RF Continued loratadine [Allergy Relief (loratadine)] 10 MG tablet 10 mg PO PRN PRN (Reason: Allergies) lisinopril-hydrochlorothiazide 20-12.5 mg tablet 1 tab PO .qd Referrals / Follow Up: Harry Woods MD [Primary Care Provider, Family Practice] Disposition Disposition (needs filled in before D/C Order can be placed): Home, Self Care
--- NOTE | 2025-01-14 12:50 | POSTOPAN2_ITS ---
Anesthesia Postop Eval I Sum Postop Eval Completion status Anesthesia document: Postop Eval 1 completed: Yes Anesthesia Postop Eval I Summary Anesthesia Postop Eval I Summary: Anesthesia Postop Eval I: Assessment Summary Airway patent Yes 01/14/25 12:16 BOOK [email or web address] Spontaneous unlabored Yes 01/14/25 12:16 BOOK [email or web address] respirations Mental status Awake,Calm 01/14/25 12:16 BOOK [email or web address] nausea No 01/14/25 12:16 BOOK [email or web address] Vomiting No 01/14/25 12:16 BOOK [email or web address] Anesthesia Postop Eval I: Fluid Summary Crystalloid volume administer 500 01/14/25 12:16 BOOK [email or web address].MDOT (ml) Colloids volume administered ( ml) Blood Product volume administered (ml) Total IV fluid infused 500 01/14/25 12:16 BOOK [email or web address] Anesthesia Postop Eval I: Summary Notes Anesthesia Complication No 01/14/25 12:16 BOOK [email or web address] Anesthesia Complication Comment: Post-operative progress note Anesthesia: Postop Eval II Evaluation Mental status: Awake Pain Level: 0 nausea: No Vomiting: No
--- NOTE | 2025-01-14 12:50 | PCM.POSTANE2 ---
Anesthesia Postop Eval I Sum Postop Eval Completion status Anesthesia document: Postop Eval 1 completed: Yes Anesthesia Postop Eval I Summary Anesthesia Postop Eval I Summary: Anesthesia Postop Eval I: Assessment Summary Airway patent Yes 01/14/25 12:16 CONSTRUCTION [email or web address] Spontaneous unlabored Yes 01/14/25 12:16 CONSTRUCTION [email or web address] respirations Mental status Awake,Calm 01/14/25 12:16 CONSTRUCTION [email or web address] nausea No 01/14/25 12:16 CONSTRUCTION [email or web address] Vomiting No 01/14/25 12:16 CONSTRUCTION [email or web address] Anesthesia Postop Eval I: Fluid Summary Crystalloid volume administer 500 01/14/25 12:16 CONSTRUCTION [email or web address] (ml) Colloids volume administered ( ml) Blood Product volume administered (ml) Total IV fluid infused 500 01/14/25 12:16 CONSTRUCTION [email or web address] Anesthesia Postop Eval I: Summary Notes Anesthesia Complication No 01/14/25 12:16 CONSTRUCTION [email or web address] Anesthesia Complication Comment: Post-operative progress note Anesthesia: Postop Eval II Evaluation Mental status: Awake Pain Level: 0 nausea: No Vomiting: No
== END 2025-01-14 13:31 | disposition home or self-care (01) ==
LOC: SDC 10:20 → AC 10:21
PROVIDERS: PCP Family Medicine; Referring Provider Surgery; Visit Provider Surgery
PROC: (CPT 36561; principal; 2025-01-14 11:45)
DX: Z45.2 Encounter for adjustment and management of vascular access device (principal); C50.911 Malignant neoplasm of unspecified site of right female breast; E78.5 Hyperlipidemia, unspecified; Z79.899 Other long term (current) drug therapy; Z87.891 Personal history of nicotine dependence; Z17.0 Estrogen receptor positive status [ER+]; I10 Essential (primary) hypertension; Z17.21 Progesterone receptor positive status; Z17.31 Human epidermal growth factor receptor 2 positive status
CPT/HCPCS: 36561; 00532; 71045; 77001; C1769; J2405